=== PATIENT | female | born 1945 | race Caucasian/White ===

== ENCOUNTER 2023-04-18 12:53 | Emergency (ER) | payer BC ==
[~2023-04-18] VITALS: Ht 160 cm; Wt 59.0 kg
[2023-04-18 13:00] VITALS: BP_SYST 143
--- NOTE | 2023-04-18 13:00 | NUR ---
RECEIVED PT FROM LUCERO BELCHER. PT LEROY DIAZ. PT S/P SYNCOPE EPISODE, STATES NO LOSS OF CONSCIOUSNESS. PT IS HAS MILD SLURRED SPEECH WITH LETHARGY. PT IS AAOX4, PERRL. EKG OBTAINED SHOWS PACED RHYTHYM. ON R/A. DENIES N/V/D/C. DISTAL PULSES NORMAL, SKIN WARM, CDI. DENIES PAIN. PT PLACED ON MONITOR AND SIDERAILS UP X2.
--- NOTE | 2023-04-18 13:01 | NUR ---
DR. OSBORNE AT BEDSIDE TO ASSESS PT.
--- NOTE | 2023-04-18 13:25 | NUR ---
BLOOD OBTAINED AND TAKEN TO LAB.
[2023-04-18 13:38] LABS: BASOPHILS # (AUTO) 0.1 K/uL (0.0-0.2); BASOPHILS % (AUTO) 0.8 % (0.0-2.0); EOSINOPHILS # (AUTO) 0.4 K/uL (0.0-0.4); HEMATOCRIT 27.4 % (36-48); HEMOGLOBIN 9.2 g/dL (12.0-16.0); LYMPHOCYTES # (AUTO) 1.2 K/uL (1.0-5.5); LYMPHOCYTES % (AUTO) 14.8 % (20.5-51.5); MEAN CORPUSCULAR HEMOGLOBIN 30 pg (27-31); MEAN CORPUSCULAR HGB CONC 34 % (32-36); MEAN CORPUSCULAR VOLUME 89 fL (79.0-98.0); MONOCYTES # (AUTO) 0.5 K/uL (0.0-1.0); MONOCYTES % (AUTO) 5.8 % (1.7-9.3); NEUTROPHILS # (AUTO) 6.2 K/uL (1.8-7.7); NEUTROPHILS % (AUTO) 73.6 % (40.0-70.0); PLATELET COUNT (AUTO) 162 K/uL (130-430); RED BLOOD CELL COUNT(AUTO) 3.09 MIL/uL (4.2-6.2); RED CELL DISTRIBUTION WIDTH 14.6 % (9.0-15.0); WHITE BLOOD COUNT (AUTO) 8.4 K/uL (4.8-10.8)
[2023-04-18] MEDS ORDERED: SYN50 PO (13:42)
[2023-04-18] MEDS ORDERED: METF-379 PO (13:42)
[2023-04-18] MEDS ORDERED: ISOS30TA85 PO (13:43)
[2023-04-18] MEDS ORDERED: ASA81 PO (13:43)
[2023-04-18] MEDS ORDERED: GLIP10TA21 PO (13:43)
[2023-04-18] MEDS ORDERED: SACU1TAB4 PO (13:43)
[2023-04-18] MEDS ORDERED: FERR236T3 PO (13:43)
[2023-04-18] MEDS ORDERED: HYDR-4038 PO (13:43)
[2023-04-18] MEDS ORDERED: LIP10 PO (13:43)
[2023-04-18] MEDS ORDERED: DIGO125T PO (13:43)
[2023-04-18] MEDS ORDERED: SPIR25TA6 PO (13:43)
[2023-04-18] MEDS ORDERED: CARV25TA55 PO (13:43)
--- NOTE | 2023-04-18 13:43 | NUR ---
Medication reconciliation completed with information provided by PATIENT. Any prior medication reconciliation on file was reviewed and corrected.
--- NOTE | 2023-04-18 13:55 | NUR ---
PT TAKEN OFF MONITOR AND TO CT SCAN.
[2023-04-18 13:56] LABS: ANION GAP 6 (5-15); CALCIUM 8.8 mg/dL (8.4-11.0); CHLORIDE 103 mmol/L (98-107); CREATININE 1.98 mg/dL (0.55-1.30); GLUCOSE 194 mg/dL (70-99); UREA NITROGEN, BLOOD 34 mg/dL (8-21)
[2023-04-18 13:59] LABS: INR 1.1 (0.8-1.2)
[2023-04-18 14:02] LABS: ALANINE AMINOTRANSFERASE 22 U/L (12-78); ALBUMIN 3.1 g/dL (3.4-4.8); ASPARTATE AMINOTRANSFERASE 22 U/L (10-37); TOTAL BILIRUBIN 0.5 mg/dL (0.0-1.0)
--- NOTE | 2023-04-18 14:14 | NUR ---
PT BACK FROM CT SCAN AND PLACED ON MONITOR.
[2023-04-18] MEDS ORDERED: IBUP-1969 PO (15:27)
[2023-04-18] MEDS ORDERED: TRAM50TA2 PO (15:27)
--- NOTE | 2023-04-18 15:52 | NUR ---
PT'S LEFT ANKLE XRAY COMPLETED.
--- NOTE | 2023-04-18 16:30 | NUR ---
PT'S LEFT ANKLE SLINT PLACED. PT GIVEN CRUTCHES AND CRUTCH TRAINING. PT DEMONSTRATED UNDERSTANDING.
--- NOTE | 2023-04-18 17:00 | NUR ---
Patient given written and verbal discharge instructions and verbalizes understanding. ER MD discussed with patient the results and treatment provided. Patient in stable condition. ID arm band removed. IV catheter removed intact and dressing applied, no active bleeding. Rx of IBUPROFEN, TRAMADOL given. Patient educated on pain management and to follow up with PMD. Pain Scale 0/10. Opportunity for questions provided and answered. Medication side effect fact sheet provided.
[2023-04-18 18:19] VITALS: BP_SYST 132
== END 2023-04-18 17:00 | disposition home or self-care (01) ==
LOC: SED 12:53
DX: S82.62XA Displaced fracture of lateral malleolus of left fibula, initial encounter for closed fracture (principal); R55 Syncope and collapse; J45.909 Unspecified asthma, uncomplicated; E11.9 Type 2 diabetes mellitus without complications; I10 Essential (primary) hypertension; Z79.899 Other long term (current) drug therapy; W04.XXXA Fall while being carried or supported by other persons, initial encounter; Y93.89 Activity, other specified; Y92.89 Other specified places as the place of occurrence of the external cause; Y99.8 Other external cause status
CPT/HCPCS: 36415; 70450-TC; 71045; 76376; 80053; 82550; 83605; 84484; 85025; 85610-TC; 85730-TC; 93005; 99285